=== PATIENT | male | born 1970 | race Caucasian/White ===

== ENCOUNTER 2017-05-03 16:08 | Emergency (ER) | payer OTHER ==
[~2017-05-03] VITALS: Ht 180.3 cm; Wt 100.9 kg
[~2017-05-03 16:08] MED LIST: AMOXICILLIN 8751 TAB PO; ASPIRIN E.C. 8181 MG PO; CELEXA 20MG20 MG/TAB PO; LIPITOR20 MG; LOPRESSOR 225 MG/TAB PO; MICARDIS40 MG PO; NORCO 325 MG-51 TAB PO; PLAVIX 75MG TAB75 MG PO; WELLBUTRIN XL300 M1 PO; ZETIA 10MG TAB10 MG PO; ZOCOR 20MG20 MG PO
[2017-05-03 16:11] VITALS: BP 121/83; PULSE 95; TEMP 98.5
[2017-05-03] MEDS ORDERED: VALTREX1 GM PO (17:56)
[2017-05-03] MEDS ORDERED: DIFLUCAN150 MG PO (17:56)
[2017-05-03] MEDS ORDERED: DOXYCYCLINE 10100 MG PO (17:56)
[2017-05-03] MEDS ORDERED: NORCO 325 MG-51 TAB PO (17:57)
[2017-05-03 18:38] LABS: PH 5 (5-8); SQUAMOUS EPITHELIAL None Seen /hpf; URINE APPEARANCE Clear; URINE BACTERIA None Seen /hpf; URINE BILIRUBIN Negative (NEGATIVE); URINE BLOOD Negative (NEGATIVE); URINE COLOR Yellow; URINE GLUCOSE 3+ (NEGATIVE); URINE KETONE Negative (NEGATIVE); URINE UROBILINOGEN Negative (NEGATIVE)
== END 2017-05-03 19:22 | disposition home or self-care (01) ==
LOC: COL.ER 16:08
PROVIDERS: Emergency Medicine
DX: N48.5 Ulcer of penis (principal); I10 Essential (primary) hypertension; Z79.02 Long term (current) use of antithrombotics/antiplatelets; I51.9 Heart disease, unspecified

== ENCOUNTER 2017-06-01 07:33 | Emergency (ER) | payer OTHER ==
[~2017-06-01] VITALS: Ht 180.3 cm; Wt 100.0 kg
[~2017-06-01 07:33] MED LIST changes: +DIFLUCAN150 MG PO; +DOXYCYCLINE 10100 MG PO; +VALTREX1 GM PO
[2017-06-01 07:39] VITALS: BP 149/88; PULSE 67; TEMP 98.1
[2017-06-01] MEDS ORDERED: NORCO 325 MG-51 TAB PO (09:14)
[2017-06-01] MEDS ORDERED: AMOXICILLIN 8751 TAB PO (09:14)
== END 2017-06-01 09:53 | disposition home or self-care (01) ==
LOC: COL.ER 07:33
DX: S61.112A Laceration without foreign body of left thumb with damage to nail, initial encounter (principal); I10 Essential (primary) hypertension; I25.10 Atherosclerotic heart disease of native coronary artery without angina pectoris; W54.0XXA Bitten by dog, initial encounter; Y92.009 Unspecified place in unspecified non-institutional (private) residence as the place of occurrence of the external cause